=== PATIENT | male | born 1960 | race Caucasian/White ===

== ENCOUNTER 2023-11-07 11:26 | Inpatient (IN) | payer BC, SELFPAY ==
[2023-11-07] VITALS (20 sets, daily range): BP systolic 120–164; BP diastolic 69–103; BMI 28.4
[2023-11-07 05:31] LABS: % Basophils 0.3 % (0-2); % Immature Granulocytes 0.4 % (0-0.5); % Lymphocytes 17.2 % (20.5-51.1); % Monocytes 8.5 % (1.7-9.3); % Neutrophils 73.6 % (42.2-75.2); Absolute Immature Granulocytes 0.1 10^3/uL (0-0.05); Absolute Lymphocytes 2.3 10^3/uL (1.2-3.4); Absolute Monocytes 1.2 10^3/uL (0.1-0.6); Absolute Neutrophils 9.9 10^3/uL (1.4-6.5); Hematocrit 48.3 % (39.0-52.0); Hemoglobin 17.8 g/dL (13.0-18.0); Mean Corp Hgb Conc. 36.9 g/dL (33.0-37.0); Mean Corpuscular Hgb 31.1 pg (27.0-31.0); Mean Corpuscular Volume 84.4 fL (80.0-94.0); Mean Platelet Volume 9.3 fL (7.4-10.4); Nucleated Red Blood Cells % 0 % (-); Platelet Count 350 10^3/uL (130-400); Red Blood Cell Count 5.72 10^6/uL (4.70-6.10); Red Cell Dist. Width 11.8 % (11.5-14.5); White Blood Cell Count 13.5 10^3/uL (4.8-10.8)
[2023-11-07 05:32] LABS: Urine Albumin 1+ (Neg - Trace); Urine Bilirubin Negative (Negative); Urine Character Clear (Clear); Urine Color Yellow; Urine Glucose 3+ (Negative); Urine Ketone 3+ (Negative); Urine Leukocyte Negative (Negative); Urine Nitrite Negative (Negative); Urine Occult Blood Negative (Negative); Urine Specific Gravity 1.025 (<1.030); Urine Urobilinogen Negative (Neg - 1+)
[2023-11-07 05:48] LABS: Urine Bacteria Few (Negative); Urine Red Blood Cell 0-2 /HPF (0-2)
[2023-11-07 05:49] LABS: ALT (SGPT) 20 U/L (0-50); AST (SGOT) 25 U/L (17-59); Albumin 4.9 g/dl (3.5-5.0); Alkaline Phosphatase 86 U/L (38-126); Blood Urea Nitrogen 24 mg/dl (9-20); Carbon Dioxide 16 mmol/L (22-30); Chloride 95 mmol/L (98-107); Estimated Creatinine Clearance 88 ml/min; Glucose 258 mg/dl (70-99); Lipase 127 U/L (23-300); Potassium 4.5 mmol/L (3.5-5.1); Sodium 132 mmol/L (135-145); Total Bilirubin 1.4 mg/dl (0.2-1.3); Total Protein 7.9 g/dl (6.3-8.2); eGFR > 60.00
--- NOTE | 2023-11-07 05:59 | ED.GENMED ---
History of Present Illness
General
Chief Complaint: Abdominal Symptoms
Source: patient
Exam Limitations: none
Time Seen by Provider: 11/07/23 05:51
History of Present Illness
History of Present Illness:
63-year-old male started with nausea vomiting 3 days ago. Appeared to improve somewhat the following day but has recurred. Has not kept anything down. Anorexia. Decreased p.o. intake. Mild vague upper abdominal discomfort. Last bowel movement
2 days ago which is unusual. No fever. No travel history. No one else is ill at home. No unusual food ingestion.
Past History
Past History
ED Past Medical History: None
ED Past Surgical History: None
Review of Systems
Review of Systems
All Other Systems: Not applicable
Constitutional: Denies fever
Cardiac: Reports no symptoms
: Reports no symptoms
Phy Exam
Physical Exam
Physical Exam:
GENERAL: Alert and oriented in no apparent distress
EYE: Orbits normal.
NECK: Supple
CARDIAC: Regular rate and rhythm without any obvious murmurs.
LUNGS: Clear breath sounds,normal
ABDOMEN: Soft, bowel sounds present but decreased. No significant distention. No hernia or masses. No rebound or guarding. Mild epigastric tenderness
NEUROLOGICAL: Alert and oriented , grossly non-focal
SKIN: Warm and dry, no rash or lesion, no discoloration, skin intact.
MUSCULOSKELETAL: No edema,no deformity.Good color
PSYCH: Normal and appropriate interaction.
Course
Orders/Labs/Results
Orders:
Orders
11/07/23 05:20
B-Hydroxybutyrate Urgent
Complete Blood Count/With Diff Urgent
Comprehensive Metabolic Panel Urgent
Glycohemoglobin (HgbA1c) Urgent
Lipase Urgent
Urinalysis Reflex To Culture Urgent
Date Specimen was Collected: 11/07/23
Time Specimen was Collected: 05:12
Urine Microscopic Reflex Cult Urgent
11/07/23 05:59
Electrocardiogram (*1) Stat
Reason for Study: Abdominal Pain
CT Abd/Pel (IV only)-DH only Urgent
Comment:
Reason For Exam: Upper abdominal pain/recurrent vomiting
Cardiac Monitoring- Treatment ONCE
EKG- Treatment ONCE
IV Insert/Care/Rem.- Treatment PRN
0.9% Sodium Chloride 1000 ml [Nss] 1,000 ml IV BOLUS
Ondansetron Injectable [Zofran] 4 mg IV NOW STA
Pulse Ox/cont/shift [RESP] Stat
Quantity: 1
11/07/23 06:18
Troponin I Urgent
11/07/23 07:31
Add On- LAB Urgent
Tests Added?: beta hydroxybutrate
Diphenhydramine [Benadryl] 25 mg IV NOW STA
Pantoprazole [Protonix IV] 40 mg IV NOW STA
Prochlorperazine [Compazine] 5 mg IV NOW STA
11/07/23 08:39
0.9% Sodium Chloride 1000 ml [Nss] 1,000 ml IV BOLUS
11/07/23 09:56
Bedside Glucose- Treatment Q1H
IV Insert/Care/Rem.- Treatment PRN
11/07/23 Lunch
NPO
Allow oral meds: Yes
Allow clear liquids: Sips of Clears
NPO with Ice Chips: Yes
Basic Metabolic Panel Q2H
11/07/23 10:39
Reg Insulin 100 Units/100 ml [Novolin R Insulin Infusion] 100 units in 100 ml IV NOW
11/07/23 11:00
KCl 20 Meq/D5.45%Sodchl 1000ML [D5/0.45%NSS with KCL 20 MEQ] 20 meq in 1,000 ml IV 200 mls/hr
11/07/23 11:05
Admit/Transfer Patient As Directed
Co-Sign Provider:
Level of Care: Inpatient admission
Assign to:: IMU- Intermediate Care
Physician / Group: Yuan
Diagnosis: DKA
Reason for Hospitalization: DKA
Expected length of stay greater than two midnights?: Yes
ELOS- Estimated Length of Stay in days: 3
I certify the patient meets the requirements for IP care: Yes
PRN Pain Medication Management As Directed
May give lesser potent ordered pain med per pt: Yes
preference::
Protocol:: Medication orders for pain may be administered in a
manner that supports deferring to patient preference
when the pt is:
- Requesting an ordered lesser potent pain medication.
Least to most potent pain medications are defined
as: acetaminophen < NSAID < tramadol < opioids
(morphine, oxycodone, hydromorphone).
- Requesting a lesser dose of the same medication IF
ORDERED.
- Requesting a less intrusive route of administration
if both routes are prescribed by the provider (PO <
IV).
11/07/23 11:06
Code Status As Directed
Resuscitation Status: Full Code
11/07/23 12:26
Basic Metabolic Panel Q2H
Magnesium Routine
Comment: ADD ON
11/07/23 13:00
KCl 20 Meq/0.9%Sodchl 1000 ml [NSS with KCL 20 MEQ] 20 meq in 1,000 ml IV 150 mls/hr
KCl 20 Meq/D5.45%Sodchl 1000ML [D5/0.45%NSS with KCL 20 MEQ] 20 meq in 1,000 ml IV 150 mls/hr
Reg Insulin 100 Units/100 ml [Novolin R Insulin Infusion] 100 units in 100 ml IV PER PROTOCOL
Currently infusing. Continue current dose and titrate:: Yes
11/07/23 13:00
Add On- LAB Routine
Tests Added?: Hemoglobin A1c,magnesium
Diabetes Management by Nurse Practitioner Routine
Consulting Provider: Bailey Cadena
Was provider already notified?: Yes
Reason for Consult: Insulin Management
Activity As Directed
Activity Level: With Assistance
Bedside Glucose Monitoring As Directed
Frequency: Q1H
Intake/ Output As Directed
Frequency: Per unit guidelines
Notify MD As Directed
Notify physician if: Nurse to contact provider when glucose reaches 250 to obtain orders for D5 0.[address] Non Medication Order As Directed
Physician Order: TT me with results of the BMP
Vital Signs As Directed
Frequency: Per unit guidelines
Weight As Directed
Frequency: Daily
DX Deep Vein Thrombosis Video Routine
11/07/23 14:00
Basic Metabolic Panel Q2H
11/07/23 18:00
Enoxaparin Sodium [Lovenox] 40 mg SC QPM
11/08/23 06:00
Electrocardiogram (*1) IN AM
Reason for Study: QTc Monitoring
BMP [Basic Metabolic Panel] IN AM
Complete Blood Count/No Diff IN AM
Abnormal Lab Results
11/07/23 11/07/23 11/07/23
05:20 09:31 11:01
WBC 13.5 H 10^3/uL
(4.8-10.8)
MCH 31.1 H pg
(27.0-31.0)
Abs Immat Gran (auto) 0.1 H 10^3/uL
(0-0.05)
Absolute Neuts (auto) 9.9 H 10^3/uL
(1.4-6.5)
Absolute Monos (auto) 1.2 H 10^3/uL
(0.1-0.6)
Lymphocytes % 17.2 L %
(20.5-51.1)
Sodium 132 L mmol/L
(135-145)
Chloride 95 L mmol/L
(98-107)
Carbon Dioxide 16 L mmol/L
(22-30)
BUN 24 H mg/dl
(9-20)
Glucose 258 H mg/dl
(70-99)
Hemoglobin A1c 10.9 H %
(4.0-5.6)
Total Bilirubin 1.4 H mg/dl
(0.2-1.3)
Urine Ketones 3+ A
(Negative)
Urine Bacteria (Reflex) Few A
(Negative)
Urine Glucose 3+ A
(Negative)
Urine Albumin (Reflex) 1+ A
(Neg - Trace)
B-Hydroxybutyrate 4.78 H mmol/L
(0.02-0.27)
POC Glucose 227 H mg/dl 239 H mg/dl
(70-99) (70-99)
11/07/23 05:20
Vital Signs
Initial and Last Documented VS:
Initial Vital Signs
Temp Pulse Resp BP Pulse Ox
98.1 F 94 26 149/92 100
11/07/23 03:59 11/07/23 03:59 11/07/23 03:59 11/07/23 03:59 11/07/23 03:59
Last Documented Vital Signs
Temp Pulse Resp BP Pulse Ox
98.1 F 68 17 145/80 99
11/07/23 03:59 11/07/23 12:30 11/07/23 12:30 11/07/23 12:30 11/07/23 12:30
MDM/Problems Addressed
Differential Diagnosis Includes:
Recurrent nausea vomiting with some decreased bowel movements. Clinically low suspicion for surgical abdomen. He clinically does not have a surgical abdomen. Highly doubt cardiac but troponin and EKG will be done for completeness. Possible viral
syndrome or related to something he ate. However no one else is ill. Patient does smoke marijuana and vapes on a daily basis. Possible cyclical vomiting like issue although at his age this would be an unusual presentation. Workup in progress
*Pulse Oximetry
Patient hypoxic: no
*Critical Care Note
Total Time (30-74mins, 75-104mins- exclusive of procedures): 15
Update Note
Update Note:
Probable new onset DKA with elevated beta hydroxybutyrate. Blood sugar 278. Acidotic. Second liter of fluid. Will then recheck Accu-Chek prior to starting insulin. Referred to hospitalist.
ED Attending Note
-
Portions of this chart may have been created with voice recognition software.� Occasional wrong word or��sound alike� substitutions may have occurred due to the inherent limitations of voice recognition software.
Discharge Plan
Departure
Patient Disposition: Admit
Date of Disposition: 11/07/23
Time of Disposition: 08:39
Presentation/result/management discussed w/ accepting MD/DO: Hospitalist
Discharge Problem:
Recurrent vomiting, Dehydration/metabolic acidosis, Hyperglycemia, New onset DKA
Interventions
Interventions:
*Risk Screen - Suicide Last Done: 11/07/23 04:50
*General Assessment Last Done: 11/07/23 03:59
*Neglect/Abuse Screening Last Done: 11/07/23 03:59
ED- Fall Risk Assessment Last Done: 11/07/23 03:59
*ED COVID-19 Vaccine History Last Done: 11/07/23 03:59
*Nursing Disposition Last Done: 11/07/23 12:40
MG-Xiqcxn-Qxrxzewyhd Assessment Last Done: 11/07/23 04:50
Discharge Date and Time
Discharge Date/Time: 11/07/23 12:41
[2023-11-07] MEDS: ZOFRAN 4 MG IV (06:15)
[2023-11-07] MEDS: NSS 1000 IV ×2 (06:16→08:40)
[2023-11-07 06:54] LABS: Troponin I < 0.012 ng/ml
[2023-11-07] MEDS: BENADRYL 25 MG IV (07:44)
[2023-11-07] MEDS: COMPAZINE 5 MG IV (07:44)
[2023-11-07] MEDS: PROTONIX IV 40 MG IV (07:45)
[2023-11-07 08:30] LABS: B-Hydroxybutyrate 4.78 mmol/L (0.02-0.27)
[2023-11-07 09:32] LABS: Glucose - Point of Care 227 mg/dl (70-99)
[2023-11-07] MEDS: D5/0.45%NSS with KCL 20 MEQ 1000 IV ×3 (10:39→23:21)
[2023-11-07] MEDS: NOVOLIN R INSULIN INFUSION 100 IV (10:51)
[2023-11-07 11:02] LABS: Glucose - Point of Care 239 mg/dl (70-99)
--- NOTE | 2023-11-07 11:17 | HPS.HSE ---
Family Physician
-
Family Physician: Gabriel Frances
Chief Complaint
-
Presents with chronic nausea, dry heaves and vomiting.
History of Present Illness
Patient's was okay on Sunday but then Sunday he was not feeling all right. Sunday and Sunday of this week he started to have this chronic nausea and dry heaving. He also vomited on few occasions. He had not eaten much since almost Sunday. Not
much appetite. He thinks he lost 10 pounds. No diarrhea. Some discomfort in the belly but no abdominal pain or tenderness. No fever or chills.
He was noted to have elevated blood sugars and metabolic acidosis concern for DKA.
Patient states he was told 3 years ago that he probably has a borderline diabetes mellitus. He did not follow up after that. He denies any polyuria or polydipsia lately.
He says he was in his usual state of health apart from these GI symptoms. No given diagnosis. Not on any prescription medications.
Medical History
Past Medical History
Past Medical History: Reports None
Past Surgical History: Reports None
Social History
Tobacco: Non-smoker
Alcohol: None
Drug: Marijuana
Living: With Family
Family History
Family History: Not pertinent
Allergies / Home Medications
Allergies reflects when Allergies were last updated in [facility].
Home Medications with original date entered in [facility]
Allergy/Medication List:
Allergies
Allergy/AdvReac Type Severity Reaction Status Date / Time
No Known Allergies Allergy Unverified 11/07/23 03:59
Home Medications
ibuprofen 200 mg capsule (Advil Liqui-Gel) 200 mg PO Q6HPRN PRN mild pain 11/07/23
Review of Systems
-
EENT: Denies Sore Throat
Respiratory: Denies Trouble Breathing
Cardiac: Denies Chest Pain or Palpitations
Abdomen/GI: Reports See HPI
: Denies Frequency
Musculoskeletal: Denies Joint Pain
Neurological: Denies Dizzy
Endocrine: Denies Polyuria or Polydipsia
Psych: Reports Calm
Physical Exam
Vital Signs
Vital Signs
Temp Pulse Resp BP Pulse Ox
98.1 F 78 14 134/103 99
11/07/23 03:59 11/07/23 10:36 11/07/23 10:36 11/07/23 10:35 11/07/23 10:36
Physical Exam
General: No Apparent Distress
HEENT: Moist mucous membranes
Respiratory: Clear
Cardiac: S1/S2, Regular Rhythm and Tachycardia
GI: Soft, Non Tender, Non Distended and Normal Bowel Sounds
Neuro: AO x 3 and No Motor Deficits; No Tremors
Psych: Calm; No Confused or Agitated
Laboratory Results
-
11/07/23 05:20
Laboratory Results
Total Bilirubin 1.4 mg/dl (0.2-1.3) H 11/07/23 05:20
AST 25 U/L (17-59) 11/07/23 05:20
ALT 20 U/L (0-50) 11/07/23 05:20
Alkaline Phosphatase 86 U/L (38-126) 11/07/23 05:20
Troponin I < 0.012 ng/ml 11/07/23 06:18
Lipase 127 U/L (23-300) 11/07/23 05:20
Data Reviewed
-
Lab Data: Labs Reviewed by me
Impression/Plan
-
Acute upper GI symptoms in the setting of DKA-CT of the abdomen pelvis without any acute abnormalities-suspect his GI symptoms may be manifestation of his newfound DKA. Treat DKA and follow his GI symptoms.
New DKA-patient with borderline diabetes mellitus diagnosed 3 years ago now with elevated blood sugars and increased anion gap metabolic acidosis. Increased beta hydroxybutyrate noted. Start on IV insulin regimen and IV fluids. Follow Accu-Cheks
every hour and follow DKA protocol in IMU. Check a hemoglobin A1c. Consult diabetic nurse practitioner.
Leukocytosis-afebrile. No focal infective symptoms other than GI symptoms. Treat DKA and follow. Hold on antibiotics.
Full code
[2023-11-07 12:02] LABS: Glucose - Point of Care 213 mg/dl (70-99)
--- NOTE | 2023-11-07 12:12 | PN.DE.MGMTRT ---
Insulin Management
- -
11/07/2023 Diabetes Management Consult
Patient c/o abdominal pain n & v for 3 days. NO PMH. He does use marijuana and vape daily.
Patient is awake alert and oriented, seen in ED. States he was told about 3 years ago he had borderline diabetes, never followed up. Glucose on admission 258, GAP 21, cr .8, eGFR >60.
Currently receiving insulin infusion, will follow until GAP closed and then prepare to transition. A1C is pending, will be helpful in determining regimen. I spoke with patient about testing his glucose, he is reluctant but I will provide and
instruct on meter in AM.
Will follow
Diabetes History
- -
Type of Diabetes: 2
Pre-Admission Diabetes Regimen
11/07/23
05:20
Creatinine 0.8
Lab Results
Hemoglobin A1c Cancelled 11/07/23 11:38
Insulin Pump Settings
IP Diabetes Regimen
11/07/23 11/07/23 11/07/23
05:20 09:31 11:01
Glucose 258 H
POC Glucose 227 H 239 H
11/07/23
11:59
Glucose
POC Glucose 213 H
Patient Education
[2023-11-07 12:41] LABS: Glycohemoglobin (HgbA1c) 10.9 % (4.0-5.6)
[2023-11-07 12:49] LABS: Blood Urea Nitrogen 19 mg/dl (9-20); Calcium 7.8 mg/dl (8.4-10.2); Carbon Dioxide 15 mmol/L (22-30); Chloride 101 mmol/L (98-107); Estimated Creatinine Clearance 88 ml/min; Glucose 196 mg/dl (70-99); Potassium 3.7 mmol/L (3.5-5.1); Sodium 134 mmol/L (135-145); eGFR > 60.00
[2023-11-07 13:52] LABS: Glucose - Point of Care 172 mg/dl (70-99)
--- NOTE | 2023-11-07 13:53 | PTCARENOTE ---
Received patient on admission from ED via stretcher with insulin drip infusing at 4.1 units/hr and D5 1/2 NSS with 20meq K+ at 200ml/hr. Accu check on unit 172; adjusted insulin drip to 2units/hr as per order. Still await verification of IVF order
per pharmacy. BMP drawn in ED prior to arrival; resulted sent to Dr Yuan via tiger text. Confirmed with Dr Yuan that patient to remain Q1h accu check and Q2h BMP.
[2023-11-07 14:48] LABS: Blood Urea Nitrogen 18 mg/dl (9-20); Calcium 8.1 mg/dl (8.4-10.2); Carbon Dioxide 17 mmol/L (22-30); Chloride 102 mmol/L (98-107); Estimated Creatinine Clearance 88 ml/min; Glucose 167 mg/dl (70-99); Potassium 3.8 mmol/L (3.5-5.1); Sodium 134 mmol/L (135-145); eGFR > 60.00
[2023-11-07 14:58] LABS: Glucose - Point of Care 186 mg/dl (70-99)
[2023-11-07 16:24] LABS: Glucose - Point of Care 156 mg/dl (70-99)
[2023-11-07 16:57] LABS: Blood Urea Nitrogen 17 mg/dl (9-20); Calcium 7.9 mg/dl (8.4-10.2); Carbon Dioxide 19 mmol/L (22-30); Chloride 102 mmol/L (98-107); Estimated Creatinine Clearance 88 ml/min; Glucose 163 mg/dl (70-99); Potassium 3.8 mmol/L (3.5-5.1); Sodium 135 mmol/L (135-145); eGFR > 60.00
[2023-11-07 17:07] LABS: Glucose - Point of Care 151 mg/dl (70-99)
[2023-11-07] MEDS: LOVENOX 40 MG SC (18:11)
[2023-11-07 18:21] LABS: Glucose - Point of Care 155 mg/dl (70-99)
--- NOTE | 2023-11-07 18:43 | PTCARENOTE ---
Addendum entered by Domenica Walter RN 11/07/23 19:10:
VBG order entered per Dr Yuan; night auditor updated and will draw.
Original Note:
Patient continues with Q1h accu check and Q2h BMP. Verified with Dr Yuan and pharmacist that D5 1/2 NSS with 20meq KCL is to continue at 150ml/hr as glucose remains <250. Orders updated with parameters. Patient resting in bed; offers no complaints.
Results of BMPs since arrival to unit, including lab draw from 18:20, sent to Dr Yuan via tiger text. Will report off to next shift.
[2023-11-07 18:44] LABS: Blood Urea Nitrogen 17 mg/dl (9-20); Carbon Dioxide 19 mmol/L (22-30); Chloride 102 mmol/L (98-107); Estimated Creatinine Clearance 88 ml/min; Glucose 162 mg/dl (70-99); Potassium 3.8 mmol/L (3.5-5.1); Sodium 136 mmol/L (135-145); eGFR > 60.00
[2023-11-07 19:24] LABS: Glucose - Point of Care 165 mg/dl (70-99)
[2023-11-07 20:21] LABS: Venous Blood Gas B.E. -1.6 mmol/L (-4 to +4); Venous Blood Gas HCO3 23.7 mmol/L (22-27); Venous Blood Gas O2 Sat % 67.4 %; Venous Blood Gas pCO2 41 mmHg (35-48); Venous Blood Gas pH 7.37 (7.32-7.43); Venous Blood Gas pO2 39 mmHg (30-50)
[2023-11-07 20:28] LABS: Glucose - Point of Care 162 mg/dl (70-99)
[2023-11-07 20:43] LABS: Blood Urea Nitrogen 16 mg/dl (9-20); Carbon Dioxide 18 mmol/L (22-30); Chloride 102 mmol/L (98-107); Estimated Creatinine Clearance 88 ml/min; Glucose 163 mg/dl (70-99); Potassium 3.7 mmol/L (3.5-5.1); Sodium 136 mmol/L (135-145); eGFR > 60.00
[2023-11-07 21:44] LABS: Glucose - Point of Care 159 mg/dl (70-99)
[2023-11-07 23:28] LABS: Glucose - Point of Care 129 mg/dl (70-99)
[2023-11-08] VITALS (12 sets, daily range): BP systolic 95–167; BP diastolic 51–91; BMI 28.2
[2023-11-08 00:02] LABS: Blood Urea Nitrogen 15 mg/dl (9-20); Calcium 8.1 mg/dl (8.4-10.2); Carbon Dioxide 18 mmol/L (22-30); Estimated Creatinine Clearance 118 ml/min; Glucose 128 mg/dl (70-99); Sodium 132 mmol/L (135-145); eGFR > 60.00
[2023-11-08 00:09] LABS: Chloride 102 mmol/L (98-107)
[2023-11-08 00:18] LABS: Glucose - Point of Care 140 mg/dl (70-99)
[2023-11-08 01:49] LABS: Glucose - Point of Care 162 mg/dl (70-99)
[2023-11-08 02:49] LABS: Glucose - Point of Care 173 mg/dl (70-99)
[2023-11-08 04:15] LABS: Glucose - Point of Care 200 mg/dl (70-99)
[2023-11-08 05:54] LABS: Glucose - Point of Care 163 mg/dl (70-99)
--- NOTE | 2023-11-08 06:00 | PTCARENOTE ---
Cared for patient overnight. Insulin gtt remains on, running around 1 & 2 overnight. blood sugars between 120-200's. BMP at 2300 GAP was 12, PIZZA BAKER was aware of this. Orders to keep insulin gtt on overnight and continue accu checks. Order for next BMP
at 0600 to assess GAP at 0600 per PIZZA BAKER. GAP at 0600 was 11. PIZZA BAKER aware. Passed information onto day shift. Only complaints from pt overnight were lack of sleep & slightly abdominal discomfort. IVF continued to run. All other assessment benign. Will
monitor.
[2023-11-08] MEDS: D5/0.45%NSS with KCL 20 MEQ 1000 IV (06:04)
[2023-11-08 06:24] LABS: Blood Urea Nitrogen 13 mg/dl (9-20); Calcium 8.2 mg/dl (8.4-10.2); Carbon Dioxide 19 mmol/L (22-30); Chloride 106 mmol/L (98-107); Estimated Creatinine Clearance 101 ml/min; Glucose 167 mg/dl (70-99); Potassium 3.8 mmol/L (3.5-5.1); Sodium 136 mmol/L (135-145); eGFR > 60.00
[2023-11-08 06:53] LABS: Glucose - Point of Care 169 mg/dl (70-99)
[2023-11-08 07:28] LABS: Hematocrit 40.6 % (39.0-52.0); Hemoglobin 14.9 g/dL (13.0-18.0); Mean Corp Hgb Conc. 36.7 g/dL (33.0-37.0); Mean Corpuscular Hgb 30.3 pg (27.0-31.0); Mean Corpuscular Volume 82.5 fL (80.0-94.0); Mean Platelet Volume 9.7 fL (7.4-10.4); Platelet Count 319 10^3/uL (130-400); Red Blood Cell Count 4.92 10^6/uL (4.70-6.10); White Blood Cell Count 11.6 10^3/uL (4.8-10.8)
[2023-11-08 07:47] LABS: Glucose - Point of Care 160 mg/dl (70-99)
--- NOTE | 2023-11-08 07:59 | PN.DE.MGMTRT ---
Insulin Management
- -
11/08/2023 Diabetes Management Consult Follow up
Patient c/o abdominal pain n & v for 3 days. NO PMH. He does use marijuana and vape daily.
Patient is awake alert and oriented, able to discuss diabetes management. States he was told about 3 years ago he had borderline diabetes, never followed up. Glucose on admission 258, GAP 21, cr .8, eGFR >60.
Currently receiving insulin infusion, @ 1 to 2 units overnight. GAP now 11, cr .7, eGFR >60. Will start metformin 500 mg BID with glimepiride 2 mg daily first dose now. Will give 10 units lantus one time dose now then insulin infusion off in 2
hours.
Provided Contour Next glucose monitor and instruct, good return demonstration. Discussed the importance of eating properly and well balanced. Agreed to dietary consult.
Will follow
Diabetes History
- -
Type of Diabetes: 2
Pre-Admission Diabetes Regimen
11/07/23 11/07/23 11/07/23
12:26 14:16 16:24
Creatinine 0.8 0.8 0.8
11/07/23 11/07/23 11/07/23
18:20 20:15 23:18
Creatinine 0.8 0.8 0.6 L
11/08/23
05:43
Creatinine 0.7
Lab Results
Hemoglobin A1c Cancelled 11/07/23 11:38
Insulin Pump Settings
IP Diabetes Regimen
11/07/23 11/07/23 11/07/23
09:31 11:01 11:59
Glucose
POC Glucose 227 H 239 H 213 H
11/07/23 11/07/23 11/07/23
12:26 13:41 14:16
Glucose 196 H 167 H
POC Glucose 172 H
11/07/23 11/07/23 11/07/23
14:47 16:11 16:24
Glucose 163 H
POC Glucose 186 H 156 H
11/07/23 11/07/23 11/07/23
16:55 18:10 18:20
Glucose 162 H
POC Glucose 151 H 155 H
11/07/23 11/07/23 11/07/23
19:12 20:14 20:15
Glucose 163 H
POC Glucose 165 H 162 H
11/07/23 11/07/23 11/07/23
21:32 23:16 23:18
Glucose 128 H
POC Glucose 159 H 129 H
11/08/23 11/08/23 11/08/23
00:06 01:37 02:39
Glucose
POC Glucose 140 H 162 H 173 H
11/08/23 11/08/23 11/08/23
04:03 05:41 05:43
Glucose 167 H
POC Glucose 200 H 163 H
11/08/23 11/08/23
06:39 07:33
Glucose
POC Glucose 169 H 160 H
Meal type: Lunch
Patient Education
[2023-11-08] MEDS: LANTUS 0.1 UNITS SC (08:59)
[2023-11-08] MEDS: AMARYL 2 MG PO (09:02)
[2023-11-08] MEDS: GLUCOPHAGE 500 MG PO ×2 (09:02→17:07)
--- NOTE | 2023-11-08 09:05 | PTCARENOTE ---
Patient ordered lantus this morning; confirmed with Rachel Chaidez that insulin drip is to be d/c'd 2 hours after lantus given.
[2023-11-08 09:21] LABS: Glucose - Point of Care 148 mg/dl (70-99)
--- NOTE | 2023-11-08 10:09 | W.PN.HOSP.TC ---
Today's Communication/Plan
-
Start on diet. Start on Lantus. Stop IV insulin and fluids.
DC planning
Assessment / Plan
Assessment / Plan
Acute upper GI symptoms in the setting of DKA-CT of the abdomen pelvis without any acute abnormalities-suspect his GI symptoms may be manifestation of his newfound DKA. Resolved GI symptoms with treatment of DKA.
New DKA-patient with borderline diabetes mellitus diagnosed 3 years ago now with elevated blood sugars and increased anion gap metabolic acidosis. Increased beta hydroxybutyrate noted. hemoglobin A1c 10.9. Resolved DKA. Switch to Lantus and stop
the IV insulin. Stop IV fluids. Start on diet. Agree with addition of oral hypoglycemic agents to insulin Lantus. Diabetic nurse practitioner following.
Leukocytosis-afebrile. No focal infective symptoms other than GI symptoms. Treat DKA and follow. Hold on antibiotics. Improving.
Full code
Anticipated Discharge: Within 24 hours
Subjective/Interval History
-
Date of Service: November 08, 2023
Voicing no specific complaint
Objective Data
-
Labs:
Laboratory Results
11/07/23 11/08/23
23:18 05:43
WBC 11.6 H
Hgb 14.9
Hct 40.6
Plt Count 319
Sodium 132 L 136
Potassium 4.0 3.8
Chloride 102 106
Carbon Dioxide 18 L 19 L
BUN 15 13
Creatinine 0.6 L 0.7
Glucose 128 H 167 H
Calcium 8.1 L 8.2 L
Vital Signs:
Vital Signs
Temp Pulse Resp BP Pulse Ox
97.8 F 66 17 146/80 97
11/08/23 07:00 11/08/23 09:22 11/08/23 09:22 11/08/23 09:22 11/08/23 09:22
I&O
09/06/2611/08/23 11/09/23
06:59 06:59 06:59
Output Total 625 / 625
Balance -625 / -625
Review of Systems
-
Respiratory: Denies Trouble Breathing
Cardiac: Denies Chest Pain
Abdomen/GI: Denies Abdominal Pain, Nausea or Vomiting
Neuro: Denies Dizzy or Headache
Physical Exam
-
General: No Apparent Distress
Respiratory: Non Labored Respirations; Negative Accessory Resp Muscle Use
Cardiac: Regular Rhythm and S1/S2; Negative Tachycardic
GI: Soft and Nontender
Neuro: AO x 3
Psych: Calm; Negative Confused
Data Reviewed
-
Labs: Labs Reviewed by me
[2023-11-08 10:13] LABS: Glucose - Point of Care 159 mg/dl (70-99)
[2023-11-08 11:14] LABS: Glucose - Point of Care 206 mg/dl (70-99)
--- NOTE | 2023-11-08 11:48 | PTCARENOTE ---
Addendum entered by Sameera Connors RN 11/08/23 12:03:
CHIEF COMPRESSOR STATION ENGINEER- Leslie Chaidez
Original Note:
Patient was discontinued off insulin drip. CHIEF COMPRESSOR STATION ENGINEER ordered insulin aspart correctional coverage. Patient's blood glucose was 206 at 1100 am. CHIEF COMPRESSOR STATION ENGINEER said to not cover him at 11 am because patient had already eaten and start the regimen before his next meal.
Will recheck blood glucose before next meal and cover with insulin as per protocol. continuing to monitor.
[2023-11-08] MEDS: NOVOLOG FLEXPEN-MODERATE RESISTANCE SC (12:03)
--- NOTE | 2023-11-08 12:27 | PN.CDI ---
CDI
- -
CDI:
Physician Documentation Request
Admit Date: 11/07/23 11:26
Dear Doctor Kwabena
Patient admitted with new DKA.
Sodium results:
Laboratory Tests
11/07/23 11/07/23 11/07/23
05:20 14:16 23:18
Sodium 132 L 134 L 132 L
11/08/23
05:43
Sodium 136
Could you please provide a diagnosis that supports the above lab abnormalities and additional evaluation/ monitoring:
Hyponatremia
Pseudohyponatremia due to hyperglycemia
Abnormal lab value clinically insignificant
Other
Use of terms such as suspected, likely, concern for, or probable (associated with a specific diagnosis that is being evaluated, monitored, or treated as if it exists) are acceptable and can be coded in the inpatient setting, when documented at the
time of discharge.
Thank you,
Shahnaz Hearn RN, BSN
CDI Specialist
tiger text
Please use your independent medical judgment in providing your response.
--- NOTE | 2023-11-08 13:09 | PTCARENOTE ---
telemetry d/c as ordered
[2023-11-08 14:00] LABS: Glucose - Point of Care 214 mg/dl (70-99)
[2023-11-08] MEDS: NOVOLOG FLEXPEN-MODERATE RESISTANCE 3 UNITS SC (14:41)
--- NOTE | 2023-11-08 14:48 | PTCARENOTE ---
Patient decided to order a late lunch after his breakfast. Per Rachel Chaidez, patient was covered with insulin for his late lunch.
--- NOTE | 2023-11-08 15:55 | PTCARENOTE ---
Patient transferred to room 436 bed 2. All belongings transferred with patient. Patient chart and novolog pen tubed to room. Report for patient given to Aston VELIZ.
[2023-11-08 16:38] LABS: Glucose - Point of Care 163 mg/dl (70-99)
[2023-11-08] MEDS: NOVOLOG FLEXPEN-MODERATE RESISTANCE 1 UNITS SC (17:06)
[2023-11-08] MEDS: LOVENOX 40 MG SC (17:07)
[2023-11-08 18:51] LABS: Hepatitis C Antibody Negative (Negative)
[2023-11-09 07:35] VITALS: BP 138/82
[2023-11-09 07:40] LABS: Glucose - Point of Care 176 mg/dl (70-99)
--- NOTE | 2023-11-09 07:50 | PN.DE.MGMTRT ---
Insulin Management
- -
11/09/2023 Diabetes Management F/U:
63 year old male admitted with 3 day hx of N/V and abdominal pain. NO PMH. States he was told about 3 years ago he had borderline diabetes, never followed up. He does use marijuana and vape daily. Glucose on admission 258, GAP 21, cr .8, eGFR >60.
Patient is awake alert and oriented, resting in bed, able to discuss diabetes management. .
11/07 transitioned off DKA protocol to metformin 500 mg BID with glimepiride 2 mg daily
Glucose stable, premeal 148 to 214, FBG 176 this AM. Discussed mgt with Darshan, pt still hoping to avoid insulin all together.
Will make no changes to current regimen: Metformin 500 mg BID with glimepiride 2 mg daily and moderate corrective insulin with meals.
Pt was provided Contour Next glucose monitor and instructions with good return demonstration.
Discussed the importance of eating properly and adequate physical activity. Will follow
Scripts for glucose monitor and meds sent to pt's pharmacy.
Diabetes History
- -
Type of Diabetes: 2
Pre-Admission Diabetes Regimen
Lab Results
Hemoglobin A1c Cancelled 11/07/23 11:38
Insulin Pump Settings
IP Diabetes Regimen
11/08/23 11/08/23 11/08/23
09:10 10:01 11:02
POC Glucose 148 H 159 H 206 H
11/08/23 11/08/23 11/09/23
13:49 16:36 07:38
POC Glucose 214 H 163 H 176 H
Meal type: Breakfast
Amount consumed: 85%
Patient Education
[2023-11-09] MEDS: GLUCOPHAGE 500 MG PO (07:57)
[2023-11-09] MEDS: NOVOLOG FLEXPEN-MODERATE RESISTANCE 1 UNITS SC (07:58)
[2023-11-09] MEDS: AMARYL 2 MG PO (07:58)
--- NOTE | 2023-11-09 11:06 | W.PN.HOSP.TC ---
Addendum entered and electronically signed by Carmelo Yuan MD 11/13/23 12:02:
Low sodium but not hypontaremia
Original Note:
Today's Communication/Plan
-
dc
Assessment / Plan
Assessment / Plan
Acute upper GI symptoms in the setting of DKA-CT of the abdomen pelvis without any acute abnormalities-suspect his GI symptoms may be manifestation of his newfound DKA. Resolved GI symptoms with treatment of DKA.
New DKA-patient with borderline diabetes mellitus diagnosed 3 years ago now with elevated blood sugars and increased anion gap metabolic acidosis. Increased beta hydroxybutyrate noted. hemoglobin A1c 10.9. Resolved DKA. Switched to Lantus from
IV insulin.
Tolerating diet.
Patient today states that he would want to try and manage with oral hypoglycemic agents and not keen on insulin at this point. He knows that he came with a DKA and his hemoglobin A1c was 10.9 and a situation like that he would benefit at least the
short-term Lantus which he understands but he wants the check his blood sugars which have been pretty good so far and try and adjust oral hypoglycemic agents and if not feasible with oral agents then would consider Lantus at that point. He would
follow with his PCP. He says he knows how to check his blood sugars which she is going to do twice a day.
Leukocytosis-afebrile. suspect reactive .Improved with resolution of DKA
Full code
More than 30 minutes spent in discharge including
Final examination of the patient
Summarizing hospital stay
Instructions for continuing care to all relevant caregivers
Preparation of discharge records, prescriptions, and referral forms
Total time spent (in minutes): 32
Anticipated Discharge: Today
Subjective/Interval History
-
Date of Service: November 09, 2023
Resolved GI symptoms. Tolerating diet. Voices no specific complaints. Keen to go home.
Objective Data
-
Vital Signs:
Vital Signs
Temp Pulse Resp BP Pulse Ox
98.1 F 8 17 138/82 97
11/09/23 07:35 11/09/23 07:35 11/09/23 07:35 11/09/23 07:35 11/09/23 07:35
I&O
11/08/23 11/09/23 11/10/23
06:59 06:59 06:59
Output Total 625 / 625 300 / 300
Balance -625 / -625 -300 / -300
Review of Systems
-
Respiratory: Denies Trouble Breathing
Cardiac: Denies Chest Pain
Abdomen/GI: Denies Abdominal Pain, Nausea or Vomiting
Neuro: Denies Dizzy
Physical Exam
-
General: No Apparent Distress
Respiratory: Non Labored Respirations; Negative Accessory Resp Muscle Use
Cardiac: Regular Rhythm and S1/S2
GI: Soft and Nontender
Neuro: AO x 3
Psych: Negative Confused
--- NOTE | 2023-11-09 11:13 | W.DS.TRANS ---
DC Summary - [employer]
-
Discharge Instructions:
Discharge Diagnosis/Procedures Diet controlled diabetes mellitus came in with
DKA
Diet Diabetic, Carb Controlled
Activity With assistance
Driving Restrictions As prior to admission
Bathing Restrictions None
Instructions:
Stand-Alone Forms:
Changes to Home Medications: Yes
Discharge Medications:
DC Medications w/original date entered in [facility]
blood sugar diagnostic (Contour Next Test Strips) #100 ea 11/08/23
lancets 21 gauge (Color Lancets) #100 ea 11/08/23
glimepiride 2 mg tablet 2 mg PO BID@0800,1700 Diabetes #60 tabs 11/09/23
metformin 500 mg tablet 500 mg PO BID@0800,1700 Diabetes #60 tabs 11/09/23
Home Medication Changes
All above meds are new
Pending Results: No
--- NOTE | 2023-11-09 11:36 | CM ---
manager [employer] reviewed patient's chart and met with patient and patient states that he lives with his spouse in a 2 story home, patient is independent with adl's and ambulation, no dme, patient drives, per patient he has been cleared for discharge to
home today, no needs.
Pharmacy: [facility]
PCP: Dr. Gabriel Walden.
Plan; Home today no needs.
== END 2023-11-09 12:07 | disposition home or self-care (01) | DRG 639 ==
LOC: 4 WEST ACU 11:26
PROVIDERS: Registered Nurse; Student in an Organized Health Care Education/Training Program; ADMITTING PHYSICIAN Internal Medicine; EMERGENCY PHYSICIAN Emergency Medicine; FAMILY PHYSICIAN Family Medicine
DX: E11.10 Type 2 diabetes mellitus with ketoacidosis without coma (principal); D72.829 Elevated white blood cell count, unspecified; E86.0 Dehydration
CPT/HCPCS: 74177; 80048; 80053; 81003; 81015; 82010; 82805; 82962; 83036; 83690; 83735; 84484; 85025; 85027; 86803; 93005; 96361; 96365; 96366; 96375; 99285; Q9967